=== PATIENT | female | born 1950 | race Caucasian/White ===

== ENCOUNTER 2016-08-13 20:04 | Emergency (ER) | payer BC ==
[~2016-08-13] VITALS: Ht 172.7 cm; Wt 83.9 kg
[2016-08-13 20:12] VITALS: BP_SYST 150
--- NOTE | 2016-08-13 20:15 | NUR ---
Placed in room 02 . Placed on monitor car operator, blood pressure machine and pulse oximeter. To gown for exam. Side rails up. Report given to JACQUES Zhou.
--- NOTE | 2016-08-13 20:17 | NUR ---
ER FRANCISCO Espinoza at bedside evaluating the patient
--- NOTE | 2016-08-13 20:22 | NUR ---
Patient to ER C/O left forearm/wrist pain started at 4 pm 10/10. Patient denies injury or trauma, no swelling, no hematoma, no deformity noted. Denies tingling or numbness. Patient is guarding the upper left extremity, active ROM limitation. AAOx4, unlabored breathing, no signs of acute distress.
[2016-08-13] MEDS ORDERED: IBUPROFEN 800 MG TABLET PO ONE (20:30)
--- NOTE | 2016-08-13 20:38 | NUR ---
Patient refused Motrin stating "i had ibuprofen 600 mg about 2-3 hours ago"
[2016-08-13] MEDS ORDERED: ACETAMINOPHEN 500 MG TABLET PO ONE (20:45)
--- NOTE | 2016-08-13 21:03 | NUR ---
Left wrist splint applied. +2 pulse noted. Capillary refill <3 seconds. Patient has ability to move non-splinted digits. Has sensation present to affected site. Skin color within normal limits. Applied for pain management control.
[2016-08-13 21:10] VITALS: BP_SYST 146
--- NOTE | 2016-08-13 21:10 | NUR ---
Patient given written and verbal discharge instructions and verbalizes understanding. ER ORDER SELECTOR Olga discussed with patient the results and treatment provided. Patient in stable condition. ID arm band removed. Rx of Motrin given. Patient educated on pain management and to follow up with PMD. Pain Scale 0/10. Opportunity for questions provided and answered.
== END 2016-08-13 21:10 | disposition home or self-care (01) ==
LOC: SED 20:04
DX: M77.9 Enthesopathy, unspecified (principal); F90.9 Attention-deficit hyperactivity disorder, unspecified type; E78.5 Hyperlipidemia, unspecified; Z85.3 Personal history of malignant neoplasm of breast
CPT/HCPCS: 99284